=== PATIENT | male | born 1955 | race Caucasian/White ===

== ENCOUNTER 2016-12-15 10:21 | Day surgery (SDC) | payer BC ==
--- NOTE | 2016-12-15 11:13 | OR ---
Anesthesia Pre Procedure Eval Pre Procedure Evaluation: Last Vital Signs Temp 36.6 C 12/15/16 10:45 Pulse 89 12/15/16 10:45 Resp 18 12/15/16 10:45 BP 143/98 12/15/16 10:45 Pulse Ox 94 12/15/16 10:45 PRE PROCEDURE EVALUATION:: DATE: 12/15/2016 TIME: 1105 INDICATIONS: Radicular low back pain. Bilateral neural foraminal narrowing at L4 5. Left foraminal narrowing at L5-S1. PAST MEDICAL HISTORY: Patient states he had an epidural injection approximately 35 years ago. No recent epidural steroid injections. EXAM: Lungs clear and equal. Heart rate regular. Patient complains of low back pain that radiates into his left leg. ASSESSMENT OF MEDICAL STATUS: Procedure risks and benefits were explained to and accepted by the patient. No contraindication to epidural steroid injection PLANNED PROCEDURE : Fluoroscopy-guided epidural steroid injection at L5-S1. Home Medications: HOME MEDICATIONS Omeprazole [Prilosec] 40 mg PO DAILY PRN 05/31/13 [Last Taken Unknown] Zolpidem Tartrate [Ambien Cr] 12.5 mg PO HS PRN 05/31/13 [Last Taken Unknown] Cyclobenzaprine HCl [Flexeril] 10 mg PO TID PRN 12/14/16 [Last Taken Unknown] HYDROcodone/ACETAMINOPHEN [Hydrocodon-Acetaminophen 5-325] 1 each PO Q6H PRN [Last Taken Unknown] Sildenafil Citrate [Viagra] 100 mg PO DAILY PRN 12/14/16 [Last Taken Unknown]
[2016-12-15] MEDS ORDERED: LIDOCAINE HCL/PF 5 ML VIAL IJ ONE (11:24)
[2016-12-15] MEDS ORDERED: DEXAMETHASONE SOD PHOSPHATE 10 MG/ML VIAL IJ ONE (11:24)
[2016-12-15] MEDS ORDERED: IOPAMIDOL 20 ML VIAL IJ ONE (11:24)
--- NOTE | 2016-12-15 11:41 | OR ---
Anesthesia Procedure Note - Anesthesia Procedure Note Narrative: Vital Signs - Last Taken Temp 36.6 C 12/15/16 10:45 Pulse 92 12/15/16 11:20 Resp 18 12/15/16 11:20 BP 167/81 12/15/16 11:20 Pulse Ox 96 12/15/16 11:20 O2 Oxygen Delivery Method Room Air 12/15/16 11:38 ANESTHESIA PROCEDURE NOTE Date of Procedure: 12/15/2016 Time of procedure: 1120. Performed by: Rajesh Hester CRNA Stunt Man: None. Preprocedure diagnosis: Radicular low back pain. Bilateral neural foraminal narrowing at L4 5. Left foraminal narrowing at L5-S1.. Post procedure diagnosis: Same. Procedure: Epidural Steroid Injection at L5-S1. Indications: Radicular low back pain. Findings: See below. Details of the procedure: The patient was brought back to operating room #2. The patient was then placed in the prone position. Back was prepped with DuraPrep. Patient was then draped in sterile fashion. Lidocaine 1% was infiltrated to the skin and subcutaneous tissues at the level of the L5-S1 interspace. The epidural space was identified using a 20-gauge Tuohy needle with [id number] technique and fluoroscopic guidance. A total of 3 mL of Isovue-200 contrast dye was injected in first the lateral and then AP position to confirm needle placement. Dexamethasone 10 mg + 5 mL of 1% preservative-free lidocaine was administered to the epidural space after negative aspiration for blood and CSF. The Tuohy needle was removed intact. A Band-Aid was applied to the patient's back. The patient was then placed in a supine position for 5 minutes before returning to the ambulatory surgical unit. Total fluoroscopy time was 26.7 seconds. Total dose 13.57 m/gy. EBL: Minimal. Fluids: N/A. Specimen: N/A. Post procedure condition: The patient tolerated the procedure well. No complications were noted. Thank you for this consultation. Rajesh Hester CRNA
[2016-12-15 11:51] VITALS: BP 172/97
== END 2016-12-15 10:22 | disposition home or self-care (01) ==
LOC: AMB 10:21
PROVIDERS: ATTEND Family Medicine
PROC: 3E0S3BZ Introduction of Anesthetic Agent into Epidural Space, Percutaneous Approach (ICD-10-PCS; 2016-12-15)
PROC: 3E0S33Z Introduction of Anti-inflammatory into Epidural Space, Percutaneous Approach (ICD-10-PCS; principal; 2016-12-15 11:00)
DX: M48.061 Spinal stenosis, lumbar region without neurogenic claudication (principal); M48.07 Spinal stenosis, lumbosacral region; Z68.33 Body mass index [BMI] 33.0-33.9, adult

== ENCOUNTER 2016-12-23 09:28 | Day surgery (SDC) | payer BC ==
--- NOTE | 2016-12-23 09:53 | OR ---
Anesthesia Pre Procedure Eval Date of Service: 12/23/16 Pre Procedure Evaluation: Last Vital Signs Temp 36.4 C L 12/23/16 09:36 Pulse 90 12/23/16 09:36 Resp 16 12/23/16 09:36 BP 145/93 12/23/16 09:36 Pulse Ox 98 12/23/16 09:36 Anesthesia Pre Procedure Evaluation DATE: 12/23/2016 TIME: 9:50 AM INDICATIONS: Left radicular pain, radiculopathy. Disc bulge L5-S1, left neural foraminal narrowing. PAST MEDICAL HISTORY: Mr. Montes has had a history of back and particularly left radicular pain. His pain is particularly exacerbated by extended periods of sitting and or walking particularly on concrete. He has had an epidural steroid injection one week ago which offered several days of relief but on return to work his aforementioned symptoms returned quickly. This distribution of pain and tingling radiates down the left leg to the toes and appears to be most concentrated in the area and second toe although it does involve the entirety of his feet. History of GERD: No History of smoking: No History of sleep apnea: Yes Treated for VALENTINA: Yes Counseled on risks of untreated VALENTINA yes EXAM: Heart S1 and S2 regular; lungs clear bilaterally ASSESSMENT OF MEDICAL STATUS: Discussed the procedure and risks, he is an appropriate candidate for neural foraminal injection. PLANNED PROCEDURE: Neural foraminal injection L5-S1 left Home Medications: HOME MEDICATIONS Omeprazole [Prilosec] 40 mg PO DAILY 05/31/13 [Last Taken Unknown] Zolpidem Tartrate [Ambien Cr] 12.5 mg PO HS 05/31/13 [Last Taken Unknown] Cyclobenzaprine HCl [Flexeril] 10 mg PO TID 12/14/16 [Last Taken Unknown] HYDROcodone/ACETAMINOPHEN [Hydrocodon-Acetaminophen 5-325] 1 each PO Q6H PRN [Last Taken Unknown] Sildenafil Citrate [Viagra] 100 mg PO DAILY PRN 12/14/16 [Last Taken Unknown]
[2016-12-23] MEDS ORDERED: BUPIVACAINE HCL/PF 30 ML VIAL IJ ONE (10:20)
[2016-12-23] MEDS ORDERED: LIDOCAINE HCL/PF 5 ML VIAL IJ ONE ×2 (10:20)
[2016-12-23] MEDS ORDERED: DEXAMETHASONE SOD PHOSPHATE 10 MG/ML VIAL IJ ONE ×2 (10:20)
--- NOTE | 2016-12-23 10:56 | OR ---
Anesthesia Procedure Note - Anesthesia Procedure Note Date of Service: 12/23/16 Narrative: Vital Signs - Last Taken Temp 36.4 C L 12/23/16 09:36 Pulse 90 12/23/16 09:36 Resp 16 12/23/16 09:36 BP 145/93 12/23/16 09:36 Pulse Ox 98 12/23/16 09:36 12/23/16 10:40 ANESTHESIA PROCEDURE NOTE Date of Procedure: 12/23/2016 Time of procedure: 10:15. Performed by: Chris Schwab CRNA, SENIOR RESERVATIONS AGENT, MSN Seaweed Harvester: Jayashree Bishop RN. Preprocedure diagnosis: Disc bulge L5-S1, left neural foraminal narrowing severe , left radicular pain. Post procedure diagnosis: Same. Procedure: Facet injection L5-S1 left. Indications: Left radicular pain with radiculopathy. Findings: See below. Details of the procedure: The patient was brought to OR #3 and was placed in the prone position. The back was prepped with DuraPrep and draped in a sterile fashion. The lumbar area was under fluoroscopy and after adjusting the C-arm to a plane perpendicular to the intended lumbar vertebral level, a straight needle haile was used to identify the level of treatment. An oblique view was then obtained to identify the angle of entry, approximately 20degree angle and the area was localized with 1% lidocaine solution and a 22ga Ortiz needle oriented down the beam of the fluoroscopy tube. The C-arm was then reoriented to show a lateral view in which the foramen were difficult at best to assess. Although I felt the tip of the needle was at or near the appropriate level, my confidence was very low considering no obvious foramen appearance presented. I reoriented to the C-arm to an AP view and injected contrast which possibly showed no nerve roots were likely was in the fat pads surrounding that sheath. Reorienting the C-arm to a lateral view the needle was then advanced to what I predicted to be the upper part of the neural foraminal opening and 0.5 mL of Isovue-200 was injected demonstrating a distribution following the corresponding nerve root. 1.5 mL of lidocaine 1% preservative-free plus 5 mg of preservative-free dexamethasone was then injected at which time Mr. Montes felt a transient paresthesia down the left leg and to the toes.The stylette was replaced and the spinal needle removed, unfortunately the lateral view was not retained. A Band-Aid was then applied to the injection site,the patient returned to the OR stretcher with good relief of pain and was then returned to [facility]. Fluoroscopy time: 68.4 Energy dosage: 40.15 EBL: Minimal/negative. Fluids: N/A. Specimen: N/A. Post procedure condition: The patient tolerated the procedure well. No complications were noted. Thank you for this consultation. Chris Schwab CRNA, SENIOR RESERVATIONS AGENT, MSN
[2016-12-23 11:16] VITALS: BP 143/95
== END 2016-12-23 09:29 | disposition home or self-care (01) ==
LOC: AMB 09:28
PROVIDERS: ATTEND Family Medicine
PROC: 3E0S3BZ Introduction of Anesthetic Agent into Epidural Space, Percutaneous Approach (ICD-10-PCS; 2016-12-23)
PROC: 3E0S33Z Introduction of Anti-inflammatory into Epidural Space, Percutaneous Approach (ICD-10-PCS; principal; 2016-12-23 10:00)
DX: M51.17 Intervertebral disc disorders with radiculopathy, lumbosacral region (principal); M48.061 Spinal stenosis, lumbar region without neurogenic claudication; Z68.33 Body mass index [BMI] 33.0-33.9, adult